=== PATIENT | male | born 2000 | race Hispanic/Latino ===

== ENCOUNTER 2022-05-07 02:01 | Emergency (ER) | payer OTHER, SELFPAY ==
[2022-05-07] MEDS ORDERED: NA CHLORIDE 0.9% 1,000 ML ONE (02:13)
[2022-05-07 02:28] LABS: Absolute Lymphocytes (CBC) 1.4 K/uL (0.7-4.9); Hematocrit 46.3 % (39.6-49.0); Lymphocytes % 9.6 % (15.3-44.8); MCV 86.7 fL (80-100); MPV 7.9 fL (7.6-11.3); RBC Red Blood Cell Count 5.34 M/uL (4.33-5.43)
[2022-05-07 02:45] LABS: Protime INR 1.09
[2022-05-07 02:52] LABS: ALT/SGPT 91 U/L (16-61); Alkaline Phosphatase 97 U/L (45-117); BUN Blood Urea Nitrogen 12 mg/dL (7-18); Bicarbonate 26 mmol/L (21-32); Bilirubin Direct 0.1 mg/dL (0-0.2); Bilirubin Total 0.5 mg/dL (0.2-1.0); Glomerular Filtration Rate 102 ml/min (=/>90); Glucose Level 129 mg/dL (74-106); Potassium 3.6 mmol/L (3.5-5.1); Protein, Total 7.7 g/dL (6.4-8.2); Sodium Level 139 mmol/L (136-145)
[2022-05-07 03:03] LABS: AST/SGOT 356 U/L (15-37)
[2022-05-07] MEDS ORDERED: ONDANSETRON 4 MG/2 ML VIAL ONE (03:29)
--- NOTE | 2022-05-07 03:40 | EDPHYS ---
Physician Documentation [facility] Name: Nathan Sanchez Age: 21 yrs Sex: Male : 2000 Arrival Date: 05/07/2022 Time: 02:02 Bed 19 Private MD: ED Physician Murray Melendez HPI: 05/07 02:13 This 21 yrs old Male presents to ER via Wheelchair with complaints of stephani Intoxication. 02:13 Context: Method: the patient has a confirmed or suspected ingestion, of alcohol. stephani Associated signs and symptoms: Pertinent positives: anxiety, dizziness. Severity of symptoms: At their worst the symptoms were mild moderate in the emergency department the symptoms are unchanged. The patient presents with confusion, decreased mental status, decreased responsiveness, disorientation, trouble concentrating. Onset: The symptoms/episode began/occurred just prior to arrival. Possible causes: drug use, alcohol. Associated signs and symptoms: Pertinent positives:. Current symptoms: In the emergency department the patient's symptoms are unchanged from the initial presentation. Patient's baseline: Neuro: alert and fully oriented. Historical: - Allergies: 02:12 Motrin; vc1 - Home Meds: 02:12 None [Active]; vc1 - PMHx: 02:12 Anxiety; Depressive disorder; vc1 - PSHx: 02:12 None; vc1 - Immunization history:: Flu vaccine is not up to date. - Social history:: Smoking status: Patient denies any tobacco usage or history of. - Family history:: not pertinent. ROS: 02:13 Constitutional: Negative for fever, chills, and weight loss, Eyes: Negative for injury, stephani pain, redness, and discharge, ENT: Negative for injury, pain, and discharge, Neck: Negative for injury, pain, and swelling, Cardiovascular: Negative for chest pain, palpitations, and edema, Respiratory: Negative for shortness of breath, cough, wheezing, and pleuritic chest pain, Abdomen/GI: Negative for abdominal pain, nausea, vomiting, diarrhea, and constipation, Back: Negative for injury and pain, : Negative for injury, bleeding, discharge, and swelling, MS/Extremity: Negative for injury and deformity, Skin: Negative for injury, rash, and discoloration, Psych: Negative for depression, anxiety, suicide ideation, homicidal ideation, and hallucinations, Allergy/Immunology: Negative for hives, rash, and allergies, Endocrine: Negative for neck swelling, polydipsia, polyuria, polyphagia, and marked weight changes, Hematologic/Lymphatic: Negative for swollen nodes, abnormal bleeding, and unusual bruising. 02:13 Neuro: Positive for altered mental status. Exam: 02:13 Constitutional: This is a well developed, well nourished patient who is awake, alert, stephani and in no acute distress. Head/Face: Normocephalic, atraumatic. Eyes: Pupils equal round and reactive to light, extra-ocular motions intact. Lids and lashes normal. Conjunctiva and sclera are non-icteric and not injected. Cornea within normal limits. Periorbital areas with no swelling, redness, or edema. ENT: Nares patent. No nasal discharge, no septal abnormalities noted. Tympanic membranes are normal and external auditory canals are clear. Oropharynx with no redness, swelling, or masses, exudates, or evidence of obstruction, uvula midline. Mucous membranes moist. Neck: Trachea midline, no thyromegaly or masses palpated, and no cervical lymphadenopathy. Supple, full range of motion without nuchal rigidity, or vertebral point tenderness. No Meningismus. Chest/axilla: Normal chest wall appearance and motion. Nontender with no deformity. No lesions are appreciated. Cardiovascular: Regular rate and rhythm with a normal S1 and S2. No gallops, murmurs, or rubs. Normal PMI, no JVD. No pulse deficits. Respiratory: Lungs have equal breath sounds bilaterally, clear to auscultation and percussion. No rales, rhonchi or wheezes noted. No increased work of breathing, no retractions or nasal flaring. Abdomen/GI: Soft, non-tender, with normal bowel sounds. No distension or tympany. No guarding or rebound. No evidence of tenderness throughout. Back: No spinal tenderness. No costovertebral tenderness. Full range of motion. Skin: Warm, dry with normal turgor. Normal color with no rashes, no lesions, and no evidence of cellulitis. MS/ Extremity: Pulses equal, no cyanosis. Neurovascular intact. Full, normal range of motion. Neuro: Awake and alert, GCS 15, oriented to person, place, time, and situation. Cranial nerves II-XII grossly intact. Motor strength 5/5 in all extremities. Sensory grossly intact. Cerebellar exam normal. Normal gait. Psych: Awake, alert, with orientation to person, place and time. Behavior, mood, and affect are within normal limits. Vital Signs: 02:10 Temp 97.3; Weight 76.2 kg; Height 5 ft. 7 in. (170.18 cm); Pain 0/10; vc1 02:22 BP 112 / 59; Pulse 88; Resp 22; Pulse Ox 100% ; vc1 03:00 BP 120 / 91; Pulse 92; Resp 18; Pulse Ox 97% on R/A; vc1 04:00 BP 137 / 99; Pulse 109; Resp 19; Pulse Ox 98% on R/A; vc1 02:10 Body Mass Index 26.31 (76.20 kg, 170.18 cm) vc1 MDM: 02:07 Patient medically screened. stephani 03:17 Differential diagnosis: Ingestion/exposure to etoh over medication, hypoglycemia. stephani Differential Diagnosis: electrolyte abnormality, alcohol intoxication, hypoglycemia, overdose, volume depletion. Data reviewed: vital signs, nurses notes, lab test result(s), CBC, electrolytes, hepatic panel, EKG, radiologic studies, ultrasound. Data interpreted: monitor technician: rate is 88 beats/min, rhythm is regular, Pulse oximetry: on room air is 100 %. Test interpretation: by ED physician or midlevel provider: ECG. Counseling: I had a detailed discussion with the patient and/or guardian regarding: the historical points, exam findings, and any diagnostic results supporting the discharge/admit diagnosis, lab results, radiology results, the need for outpatient follow up, for definitive care, a family practitioner, a mental health associate. 05/07 02:09 Order name: Acetaminophen; Complete Time: 03:14 stephani 05/07 02:09 Order name: Basic Metabolic Panel; Complete Time: 03:14 stephani 05/07 02:09 Order name: CBC with Diff; Complete Time: 03:14 stephani 05/07 02:09 Order name: ETOH Level; Complete Time: 03:14 stephani 05/07 02:09 Order name: Hepatic Function; Complete Time: 03:14 stephani 05/07 02:09 Order name: PT-INR; Complete Time: 03:14 stephani 05/07 02:09 Order name: Ptt, Activated; Complete Time: 03:14 stephani 05/07 02:09 Order name: Salicylate; Complete Time: 03:14 stephani 05/07 02:09 Order name: Urine Drug Screen [facility] 05/07 02:09 Order name: EKG; Complete Time: 02:10 [facility] 05/07 02:09 Order name: IV Saline Lock; Complete Time: 02:21 [facility] 05/07 02:09 Order name: Labs collected and sent; Complete Time: 02:21 [facility] 05/07 02:09 Order name: Suicide Screening ([place]); Complete Time: 02:21 [facility] 05/07 02:09 Order name: Urine Dipstick-Ancillary (obtain specimen); Complete Time: 04:17 [facility] Administered Medications: 02:21 Drug: NS 0.9% 1000 ml Route: IV; Rate: 1 bolus; Site: right antecubital; vc1 03:40 Follow up: IV Status: Completed infusion; IV Intake: 1000ml vc1 03:30 Drug: Zofran (Ondansetron) 4 mg Route: IVP; Site: right antecubital; tw5 04:00 Follow up: Response: No adverse reaction; Marked relief of symptoms; Nausea is vc1 decreased; Vomiting decreased Disposition Summary: 05/07/22 03:40 Discharge Ordered Location: Home [facility] Problem: new [facility] Symptoms: have improved stephani Condition: Stable [facility] Diagnosis - Altered mental status, unspecified stephani - Alcohol abuse with intoxication [facility] Followup: stephani - With: Private Physician - When: 2 - 3 days - Reason: Recheck today's complaints, Continuance of care, Re-evaluation by your physician Followup: stephani - With: - When: 2 - 3 days - Reason: Recheck today's complaints, Re-evaluation by your physician Discharge Instructions: - Discharge Summary Sheet [facility] - Alcohol Intoxication stephani - Confusion [facility] - Alcohol Intoxication, [id number] [facility] Forms: - Medication Reconciliation Form [facility] - Thank You Letter [facility] - Antibiotic Education [facility] - Prescription Opioid Use [facility] Prescriptions: - Pepcid 20 mg Oral Tablet - take 1 tablet by ORAL route every 12 hours for 10 days; 20 tablet; Refills: 0, [facility] Product Selection Permitted - Zofran 4 mg Oral Tablet - take 1 tablet by ORAL route every 12 hours As needed; 20 tablet; Refills: 0, [facility] Product Selection Permitted Signatures: Dispatcher [employer] Murray Sood MD MD cha Wood, Tiffany tw5 Airam Orat RN RN vc1 Corrections: (The following items were deleted from the chart) 02:12 02:12 Allergies: No Known Allergies; vc1 vc1 03:46 03:15 Abdomen Limited+US.RAD.BRZ ordered. EDMS EDMS 04:17 02:09 EKG - Nurse/Tech ordered. stephani vc1
--- NOTE | 2022-05-07 03:40 | ER ---
Nurse's Notes [facility] Name: Nathan Sanchez Age: 21 yrs Sex: Male : 2000 Arrival Date: 05/07/2022 Time: 02:02 Bed 19 Private MD: Diagnosis: Altered mental status, unspecified;Alcohol abuse with intoxication Presentation: 05/07 02:10 Chief complaint: Brother states " We were just at a family function drinking. I have vc1 never seen him like this. I know that he had a shot of whiskey, vodka, and he had some beers. He did wander off for about 20 min and we dont know if maybe he did something else.". Coronavirus screen: Vaccine status: Patient reports being unvaccinated. Ebola Screen: Patient negative for fever greater than or equal to 101.5 degrees Fahrenheit, and additional compatible Ebola Virus Disease symptoms Patient denies exposure to infectious person. Patient denies travel to an Ebola-affected area in the 21 days before illness onset. Initial Sepsis Screen: Does the patient meet any 2 criteria? No. Patient's initial sepsis screen is negative. Does the patient have a suspected source of infection? No. Patient's initial sepsis screen is negative. Risk Assessment: Do you want to hurt yourself or someone else? Patient reports no desire to harm self or others. Onset of symptoms was May 07, 2022. 02:10 Method Of Arrival: Wheelchair vc1 02:10 Acuity: [facility] 3 vc1 Triage Assessment: 02:12 General: Appears in no apparent distress. Behavior is drowsy. Pain: Denies pain. vc1 Historical: - Allergies: 02:12 Motrin; vc1 - Home Meds: 02:12 None [Active]; vc1 - PMHx: 02:12 Anxiety; Depressive disorder; vc1 - PSHx: 02:12 None; vc1 - Immunization history:: Flu vaccine is not up to date. - Social history:: Smoking status: Patient denies any tobacco usage or history of. - Family history:: not pertinent. Screenin:00 [facility] ED Fall Risk Assessment (Adult) History of falling in the last 3 months, vc1 including since admission No falls in past 3 months (0 pts) Confusion or Disorientation Yes (5 pts) Intoxicated or Sedated Yes (3 pts) Impaired Gait Yes (1 pt) Mobility Assist Device Used No (0 pt) Altered Elimination Yes (1 pt) Score/Fall Risk Level 3 or more points = High Risk Oriented to surroundings, Maintained a safe environment, Educated pt \\T\\ family on fall prevention, incl call for assistance when getting out of bed. Abuse screen: Denies threats or abuse. 03:00 Nutritional screening: No deficits noted. Tuberculosis screening: No symptoms or risk vc1 factors identified. Assessment: 03:00 Reassessment: No changes from previously documented assessment. Patient and/or family vc1 updated on plan of care and expected duration. Pain level reassessed. 04:00 Reassessment: Patient and/or family updated on plan of care and expected duration. Pain vc1 level reassessed. Patient is alert, oriented x 3, equal unlabored respirations, skin warm/dry/pink. Patient denies pain at this time. Patient states feeling better. Patient states symptoms have improved. Vital Signs: 02:10 Temp 97.3; Weight 76.2 kg; Height 5 ft. 7 in. (170.18 cm); Pain 0/10; vc1 02:22 BP 112 / 59; Pulse 88; Resp 22; Pulse Ox 100% ; vc1 03:00 BP 120 / 91; Pulse 92; Resp 18; Pulse Ox 97% on R/A; vc1 04:00 BP 137 / 99; Pulse 109; Resp 19; Pulse Ox 98% on R/A; vc1 02:10 Body Mass Index 26.31 (76.20 kg, 170.18 cm) vc1 ED Course: 02:02 Patient arrived in ED. ja2 02:07 Murray Melendez MD is Attending Physician. stephani 02:12 Triage completed. vc1 02:12 Arm band placed on. vc1 02:15 Patient has correct armband on for positive identification. Placed in gown. Bed in low vc1 position. Call light in reach. Client placed on continuous cardiac and pulse oximetry monitoring. NIBP monitoring applied. 02:21 Airam Orta RN is Primary Nurse. vc1 02:30 Inserted saline lock: 20 gauge in right antecubital area, using aseptic technique. vc1 Blood collected. IV discontinued, intact, bleeding controlled, No redness/swelling at site. Pressure dressing applied. 03:40 Krishna Hayes MD is Referral Physician. [facility] 04:00 No provider procedures requiring assistance completed. vc1 Administered Medications: 02:21 Drug: NS 0.9% 1000 ml Route: IV; Rate: 1 bolus; Site: right antecubital; vc1 03:40 Follow up: IV Status: Completed infusion; IV Intake: 1000ml vc1 03:30 Drug: Zofran (Ondansetron) 4 mg Route: IVP; Site: right antecubital; tw5 04:00 Follow up: Response: No adverse reaction; Marked relief of symptoms; Nausea is vc1 decreased; Vomiting decreased Medication: 04:00 VIS not applicable for this client. vc1 Intake: 03:40 IV: 1000ml; Total: 1000ml. vc1 Outcome: 03:40 Discharge ordered by . [facility] 04:00 Discharged to home ambulatory. vc1 04:00 Condition: improved 04:00 Discharge instructions given to patient, Instructed on discharge instructions, follow up and referral plans. medication usage, Demonstrated understanding of instructions, follow-up care, medications, Prescriptions given X 2. 04:05 Patient left the ED. vc1 Signatures: Murray Melendez MD MD cha Alexander, Jessica ja2 Wood, Tiffany tw5 Airam Orta, RN RN vc1 Corrections: (The following items were deleted from the chart) 02:12 02:12 Allergies: No Known Allergies; vc1 vc1 04:40 04:40 VIS not applicable for this client. vc1 vc1 04:41 04:40 Condition: improved vc1 vc1 04:41 04:40 Discharged to home ambulatory, vc1 vc1 04:41 04:40 Discharge instructions given to patient, Instructed on discharge instructions, vc1 follow up and referral plans. medication usage, Demonstrated understanding of instructions, follow-up care, medications, Prescriptions given X 2, vc1 04:45 04:43 Patient left the ED. vc1 vc1
[2022-05-07 04:11] LABS: Barbiturates NEGATIVE (NEGATIVE); Benzodiazepines NEGATIVE (NEGATIVE); Cocaine NEGATIVE (NEGATIVE); METHAMPHETAM NEGATIVE (NEGATIVE); Methadone NEGATIVE (NEGATIVE); Opiates NEGATIVE (NEGATIVE); Phencyclidine NEGATIVE (NEGATIVE); THC Cannibis NEGATIVE (NEGATIVE)
[2022-05-07 04:48] VITALS: TEMP 97.3
[2022-05-07 04:51] VITALS: BP 137/99; O2SAT 98
== END 2022-05-07 04:43 | disposition home or self-care (01) ==
LOC: ER 02:01
DX: F10.129 Alcohol abuse with intoxication, unspecified (principal); Z88.6 Allergy status to analgesic agent
CPT/HCPCS: 96361; 85025; 80048; 36415; 80320; 80329 ×2; 85610; 80076; 85730; 80307; 96374; 99284; J7030; J2405